=== PATIENT | female | born 1990 | race Caucasian/White ===

== ENCOUNTER 2019-12-16 21:26 | Emergency (ER) | payer MEDICAID, OTHER ==
[~2019-12-16] VITALS: Ht 170.2 cm; Wt 61.2 kg
[2019-12-16 21:32] VITALS: BP 148/92
[2019-12-16] MEDS ORDERED: ONDANSETRON 4 MG/2 ML VIAL IVP ONE (21:45)
[2019-12-16] MEDS ORDERED: NACL 0.9% 1,000 ML IV ONE ×2 (21:45→23:20)
[2019-12-16] MEDS ORDERED: MORPHINE SULFATE 4 MG/ML SYR IVP ONE (21:45)
[2019-12-16 22:19] LABS: BASOPHILS # (AUTO) 0.1 K/uL (0.00-0.22); EOSINOPHILS % (AUTO) 0.1 % (0.0-4.0); HEMOGLOBIN 13.8 g/dL (12.0-16.0); LYMPHOCYTES # (AUTO) 1.4 K/uL (2.5-16.5); MEAN CORPUSCULAR HEMOGLOBIN 30 pg (27-31); MEAN CORPUSCULAR HGB CONC 34 g/dL (33-37); MEAN CORPUSCULAR VOLUME 87.5 fL (80-94); MONOCYTES # (AUTO) 0.5 K/uL (0.8-1.0); MONOCYTES % (AUTO) 4.6 % (1.7-9.3); RED CELL DISTRIBUTION WIDTH 13.2 % (11.6-13.7)
[2019-12-16 22:24] LABS: BASOPHILS % (AUTO) 0.7 % (0.0-2.0); HEMATOCRIT 40.1 % (36-48); LYMPHOCYTES % (AUTO) 12.2 % (20.5-51.1); NEUTROPHILS # (AUTO) 9.5 K/uL (1.8-7.7); NEUTROPHILS % (AUTO) 82.4 % (42.2-75.2); PLATELET COUNT (AUTO) 340 K/uL (140-450); RED BLOOD CELL COUNT(AUTO) 4.58 MIL/uL (4.20-5.40); WHITE BLOOD COUNT (AUTO) 11.6 K/uL (4.8-10.8)
[2019-12-16 22:36] LABS: ALBUMIN 4.8 g/dL (3.4-5.0); ANION GAP 21.1 (8-16); CARBON DIOXIDE 22.2 mmol/L (21-32); CREATININE 1.4 mg/dL (0.6-1.3); POTASSIUM 3.3 mmol/L (3.5-5.1); TOTAL BILIRUBIN 0.9 mg/dL (0.0-1.0)
[2019-12-16] MEDS ORDERED: METOCLOPRAMIDE 10 MG/2 ML INJ VIAL IVP ONE (22:50)
[2019-12-16] MEDS ORDERED: diphenhydrAMINE 50 MG/ML VIAL IVP ONE (22:50)
[2019-12-16 22:52] LABS: APPEARANCE,URINE CLEAR (CLEAR); BILIRUBIN,URINE NEGATIVE (NEGATIVE); BLOOD, URINE NEGATIVE (NEGATIVE); COLOR,URINE YELLOW (YELLOW); LEUKOCYTE ESTERASE ,URINE NEGATIVE (NEGATIVE); NITRITE, URINE NEGATIVE (NEGATIVE); PH,URINE 8.5 (5.0-9.0); UGLUCOSE NEGATIVE (NEGATIVE)
[2019-12-17] MEDS ORDERED: HALOPERIDOL IM 5 MG/ML VIAL IVP ONE (00:55)
[2019-12-17 01:25] VITALS: BP 129/73
== END 2019-12-17 01:25 | disposition home or self-care (01) ==
LOC: MED 21:26
DX: K52.9 Noninfective gastroenteritis and colitis, unspecified (principal); R11.2 Nausea with vomiting, unspecified; Z98.890 Other specified postprocedural states
CPT/HCPCS: 36415; 74177; 76705; 80053; 81003; 81025; 83690; 84703; 85025; 96361; 96374; 96375; 99285; J1200; J1630; J2270; J2405; J2765; J7030; Q0092; Q9967

== ENCOUNTER 2021-09-21 13:58 | Emergency (ER) | payer MEDICAID ==
[~2021-09-21] VITALS: Ht 167.6 cm; Wt 68.5 kg
[2021-09-21 14:07] VITALS: BP 137/94
[2021-09-21 19:47] VITALS: BP 148/78
[2021-09-21 20:18] LABS: APPEARANCE,URINE CLEAR (CLEAR); BILIRUBIN,URINE NEGATIVE (NEGATIVE); BLOOD, URINE 2+ (NEGATIVE); COLOR,URINE STRAW (YELLOW); LEUKOCYTE ESTERASE ,URINE NEGATIVE (NEGATIVE); NITRITE, URINE NEGATIVE (NEGATIVE); UGLUCOSE NEGATIVE (NEGATIVE)
[2021-09-21 20:50] LABS: RBC,URINE 0-5 /HPF (0-5); WBC,URINE 0-5 /HPF (0-5)
== END 2021-09-21 21:08 | disposition home or self-care (01) ==
LOC: MED 13:58
DX: O02.0 Blighted ovum and nonhydatidiform mole (principal); Z3A.01 Less than 8 weeks gestation of pregnancy
CPT/HCPCS: 36415; 76817; 81001; 84702; 86900; 86901; 99284; 99285; Q0092

== ENCOUNTER 2024-06-05 09:52 | Emergency (ER) | payer MEDICAID, OTHER ==
[~2024-06-05] VITALS: Ht 170.2 cm; Wt 63.5 kg
[2024-06-05 10:14] VITALS: BP 131/83; PULSE 78; RESP 18; TEMP 97.7; O2SAT 98
[2024-06-05 10:57] LABS: BASOPHILS # (AUTO) 0.1 K/uL (0.00-0.22); BASOPHILS % (AUTO) 0.4 % (0.0-2.0); EOSINOPHILS % (AUTO) 0.1 % (0.0-4.0); HEMOGLOBIN 14.4 g/dL (12.0-16.0); LYMPHOCYTES # (AUTO) 1.4 K/uL (2.5-16.5); LYMPHOCYTES % (AUTO) 10.1 % (20.5-51.1); MEAN CORPUSCULAR HEMOGLOBIN 30 pg (27-31); MEAN CORPUSCULAR HGB CONC 35 g/dL (33-37); MEAN CORPUSCULAR VOLUME 85.9 fL (80-94); MONOCYTES # (AUTO) 0.7 K/uL (0.8-1.0); MONOCYTES % (AUTO) 5.2 % (1.7-9.3); NEUTROPHILS # (AUTO) 11.4 K/uL (1.8-7.7); NEUTROPHILS % (AUTO) 84.2 % (42.2-75.2); PLATELET COUNT (AUTO) 309 K/uL (140-450); RED BLOOD CELL COUNT(AUTO) 4.77 MIL/uL (4.20-5.40); RED CELL DISTRIBUTION WIDTH 13.4 % (11.6-13.7); WHITE BLOOD COUNT (AUTO) 13.6 K/uL (4.8-10.8)
[2024-06-05] MEDS: NACL 0.9% 1,000 ML IV ONE (11:06)
[2024-06-05] MEDS: MORPHINE SULFATE 4 MG/ML SYR IVP ONE (11:07)
[2024-06-05 11:37] LABS: ALBUMIN 5.1 g/dL (3.4-5.0); ANION GAP 16.2 (8-16); CALCIUM 9.5 mg/dL (8.5-10.1); CARBON DIOXIDE 27.1 mmol/L (21-32); CREATININE 1.1 mg/dL (0.6-1.3); POTASSIUM 3.3 mmol/L (3.5-5.1); TOTAL BILIRUBIN 2.7 mg/dL (0.0-1.0); TOTAL PROTEIN, SERUM 8.4 g/dL (6.4-8.2)
[2024-06-05] MEDS: CYCLOBENZAPRINE 10 MG TAB PO ONE (13:13)
[2024-06-05] MEDS: SODIUM PHOS / POTASSIUM PHOS 1 PKT PDR PO SCH (13:13)
[2024-06-05] MEDS ORDERED: [UNRECOGNIZED DRUG - CODE] PO ×2 (13:31→16:15)
[2024-06-05 13:40] LABS: BILIRUBIN,URINE NEGATIVE (NEGATIVE); BLOOD, URINE NEGATIVE (NEGATIVE); COLOR,URINE YELLOW (YELLOW); LEUKOCYTE ESTERASE ,URINE NEGATIVE (NEGATIVE); NITRITE, URINE NEGATIVE (NEGATIVE); PH,URINE 7.5 (5.0-9.0); PROTEIN,URINE TRACE (NEGATIVE); UGLUCOSE NEGATIVE (NEGATIVE); UROBILINOGEN,URINE 0.2 EU/dL (0.2 - 1)
[2024-06-05 13:41] LABS: APPEARANCE,URINE SLIGHTLY HAZY (CLEAR)
[2024-06-05 13:42] LABS: RBC,URINE 0-5 /HPF (0-5)
[2024-06-05 13:43] LABS: BACTERIA,URINE 1+ /HPF (None Seen); MUCUS,URINE None Seen /LPF (None Seen); SQUAMOUS EPITHELIAL CELL,UR 0-3 (FEW) /LPF (0-3 (FEW)); WBC,URINE 0-5 /HPF (0-5)
[2024-06-05 14:03] VITALS: BP 126/73; PULSE 78; RESP 18; TEMP 97.7; O2SAT 98
== END 2024-06-05 13:58 | disposition home or self-care (01) ==
LOC: MED 09:52
DX: M54.50 Low back pain, unspecified (principal); R11.2 Nausea with vomiting, unspecified; Z79.899 Other long term (current) drug therapy
CPT/HCPCS: 36415; 74177; 80053; 81001; 83690; 84703; 85025; 96361; 96374; 99285; J2270; J7030; Q9967